=== PATIENT | male | born 1990 | race Caucasian/White ===

== ENCOUNTER 2018-11-06 20:37 | Emergency (ER) | payer SELFPAY ==
[~2018-11-06] VITALS: Ht 177.8 cm; Wt 101.2 kg
--- OUTSIDE RECORDS SUMMARY | 2018-11-06 20:40 | XMS REPORT ---
Author Author [facility] Address Unknown Phone Unavailable Care Team Providers Care Android Ui Developer Name Role Phone Unavailable Unavailable Payers Payer Name Policy Type Policy Number Effective Date Expiration Date Problems This patient has no known problems. Allergies, Adverse Reactions, Alerts Allergy Name Allergy Type Status Severity Reaction(s) Onset Date Inactive Date Treating Clinician Comments No Known Allergies DA Active U 2018-05-31 00:00:00 No Known Allergies DA Active U 2016-12-08 00:00:00 Medications This patient has no known medications. Encounters Start Date/Time End Date/Time Encounter Type Admission Type Attending [facility] Care Department Encounter ID 2018-04-25 00:00:00 2018-04-27 00:00:00 Outpatient [facility] [id number] 2018-02-19 00:00:00 2018-02-20 00:00:00 Outpatient [facility] [id number] 2017-06-21 00:00:00 2017-10-26 00:00:00 Outpatient [facility] [id number] 2017-10-16 15:06:01 2017-10-16 15:06:01 Outpatient [facility] [id number] 2017-06-12 00:00:00 2017-06-13 00:00:00 Outpatient [facility] [id number] 2016-12-30 00:00:00 2017-02-14 00:00:00 Outpatient [facility] [id number]
[2018-11-06 22:44] LABS: INFLUENZAE A&B ANTIGEN (RAPID) NEGATIVE (NEGATIVE); STREPTOCOCCUS GRP A ANTIGEN NEGATIVE (NEGATIVE)
--- NOTE | 2018-11-06 22:44 | Diagnostic Imaging Report ---
EXAMINATION: CHEST 2 VIEWS INDICATION: Pain. Green sputum. COUGH COMPARISON: None FINDINGS: TUBES and LINES: None. LUNGS: Lungs are mildly hyperinflated. Bilateral perihilar, peribronchial thickening perihilar streaky densities. PLEURA: No pleural effusion or pneumothorax. HEART AND MEDIASTINUM: The cardiomediastinal silhouette is unremarkable. Mild prominence of the pulmonary aryan bilaterally may represent mild lymphadenopathy. BONES AND SOFT TISSUES: No acute osseous lesion. Soft tissues are unremarkable. UPPER ABDOMEN: No free air under the diaphragm. IMPRESSION: Findings suggestive of a viral infection versus reactive airway disease. Signed by: Dr. Trevor Sheppard M.D. on 11/06/2018 10:41 PM
[2018-11-06] MEDS ORDERED: ALBUTEROL SULF 0.083% NEB SOLN 3 ML NEB NEB STA (23:07)
[2018-11-07 01:31] VITALS: BP 117/81
== END 2018-11-07 00:50 | disposition home or self-care (01) ==
LOC: ER 20:37
DX: R50.9 Fever, unspecified (principal); R05 Cough; R19.7 Diarrhea, unspecified; J06.9 Acute upper respiratory infection, unspecified; J02.9 Acute pharyngitis, unspecified; J45.30 Mild persistent asthma, uncomplicated
CPT/HCPCS: 71046; 83518; 87070; 87400; 99283